=== PATIENT | female | born 1950 | race Caucasian/White ===

== ENCOUNTER 2017-07-13 07:35 | Day surgery (SDC) | payer OTHER ==
[2017-07-12 08:44] VITALS: BMI 34.9
[2017-07-13] MEDS ORDERED: MIDAZOLAM HCL 2 MG/2 ML SINGLE DOSE VIAL ONE (11:03)
[2017-07-13] MEDS ORDERED: LIDOCAINE HCL 1%, 10 MG/ML (20ML VIAL) ONE (11:21)
[2017-07-13] MEDS ORDERED: ceFAZolin SODIUM 1 GM VIAL IVPB ONE ×2 (11:34→12:10)
[2017-07-13] MEDS ORDERED: ceFAZolin SODIUM 1 GM VIAL ONE (12:12)
[2017-07-13] MEDS ORDERED: ONDANSETRON 4 MG/2 ML VIAL ONE (12:12)
[2017-07-13] MEDS ORDERED: LIDOCAINE HCL 1%, 10 MG/ML (20ML VIAL) ID ONE (12:15)
[2017-07-13] MEDS ORDERED: ePHEDrine SULFATE 50 MG/1 ML AMPULE ONE (12:27)
[2017-07-13] MEDS ORDERED: oxyCODONE HCL 5 MG TABLET PO PRN (12:58)
[2017-07-13] MEDS ORDERED: ONDANSETRON 4 MG/2 ML VIAL IVPUSH PRN (12:58)
[2017-07-13] MEDS ORDERED: LACTATED RINGERS SOLUTION 1,000 ML IV SCH (13:00)
--- NOTE | 2017-07-13 14:28 | OP ---
DATE OF OPERATION: 07/13/2017 PREOPERATIVE DIAGNOSIS: Right breast microcalcifications on mammography. POSTOPERATIVE DIAGNOSIS: Right breast microcalcifications on mammography. PROCEDURE: Right breast wire-localized excision. SURGEON: Sheryl Burrows MD ANESTHESIA: Local and IV sedation. ESTIMATED BLOOD LOSS: Minimal. COMPLICATIONS: None. DISPOSITION: Stable. This was a sterile procedure. INDICATIONS FOR PROCEDURE: Patient presented with a screening mammography that noted 2 areas of clustered microcalcifications in the upper outer right breast. They have a similar morphology. We discussed a biopsy of these areas, and we discussed options of stereotactic biopsy versus excisional, and she wanted to go ahead with an excisional biopsy. The procedure was discussed with all the questions answered. PROCEDURE IN DETAIL: Patient was brought to [facility], taken down to breast imaging, where a wire was used to localize the most suspicious calcifications in retroareolar, right breast, close to the lumpectomy cavity. She was then brought up into the operating room. After IV sedation and IV antibiotics, the area in the upper outer right breast was anesthetized with 1% lidocaine without epinephrine. A periareolar incision was made in the outer part of the right breast, and a wire was used as a guide to get down to the area of interest. I did release some of the scar tissue from her prior lumpectomy, which was in the 11 and 12 o'clock periareolar location. This was excised en bloc and sent as a right breast excision. Specimen radiograph showed the calcification and the wire to be intact within the specimen. This was then sent to Pathology for permanent section. Hemostasis was assured with electrocautery. The parenchyma was approximated with interrupted 2-0 Vicryl, skin approximated with interrupted 3-0 Vicryl, running 4-0 Prolene, and sterile dressings with Tegaderm and 4x4s were applied. She tolerated the procedure well and was taken to recovery in good condition. SHERYL BURROWS M.D. [id number]
[2017-07-13 15:03] VITALS: TEMP 97.8
[2017-07-13 17:14] VITALS: BP 132/66; PULSE 56
--- NOTE | 2017-07-17 12:21 | PATH ---
Surgical Pathology Report Patient Name: PEREZ ROBBINS [facility]. Rec. #: [id number] /Age/Gender: 1950 (Age: 66) / F Account: [id number] Location: [facility] SURGICAL Taken: 07/13/2017 Received: 07/13/2017 Reported: 07/17/2017 Physicians: Sheryl Eduardo M.D. Specimen(s) Received RIGHT BREAST EXCISIONAL BIOPSY Clinical History History of right breast cancer status post lumpectomy and radiation Mammographic findings: Microcalcification, suspicious Final Diagnosis RIGHT BREAST, WIDE EXCISION WITH WIRE LOCALIZATION: MARKEDLY SCLEROTIC FIBROUS TISSUE WITH PIGMENT DEPOSITION AND CHRONIC INFLAMMATION SUGGESTIVE OF PRIOR EXCISION SITE. FOCAL NEUROMA FORMATION IS PRESENT. SCLEROSED FIBROADENOMA WITH STROMAL CALCIFICATION PRESENT REMAINING BREAST TISSUE WITH FIBROCYSTIC CHANGES INCLUDING STROMAL FIBROSIS AND DUCTAL DILATATION, WITH RARE CALCIFICATION. NO CARCINOMA IS IDENTIFIED. Comment: See also prior specimen [id number]. Electronically Signed Jack Paulson M.D. Gross Description Received fresh on an [employer] labeled "right breast excisional biopsy," is a 4.5 x 3.5 x 2.1 cm irregular, unoriented portion of fibroadipose tissue with a needle localization wire present. There is no skin or nipple present. The specimen is inked black and serially sectioned. Sectioning reveals a 2.4 x 1.2 x 0.9 cm focus of dense, white, firm fibrous tissue. No definitive mass is identified. [employer] sections including the majority of the fibrous tissue are sequentially submitted in 8 cassettes with the firm focus of fibrous tissue in cassettes 2-4. Total formalin fixation time: Approximately 48 hours 07/13/201707/13/2017
== END 2017-07-13 15:15 | disposition home or self-care (01) ==
LOC: JASU-SURG 07:35
PROVIDERS: ATTEND Surgery
PROC: 0HBT3ZX Excision of Right Breast, Percutaneous Approach, Diagnostic (ICD-10-PCS; principal; 2017-07-13 11:00)
DX: D24.1 Benign neoplasm of right breast (principal); N60.11 Diffuse cystic mastopathy of right breast; Z85.3 Personal history of malignant neoplasm of breast
CPT/HCPCS: 19281; 88307-TC; 94760